=== PATIENT | female | born 1970 | race Caucasian/White ===

== ENCOUNTER → 2018-04-05 | Outpatient (CLI) | payer BC | LOC: MC.RAD 07:40 | DX: Z12.31 Encounter for screening mammogram for malignant neoplasm of breast (principal); Z98.82 Breast implant status ==

== ENCOUNTER 2019-07-26 13:42 | Emergency (ER) | payer OTHER ==
[~2019-07-26] VITALS: Ht 154.9 cm; Wt 51.4 kg
[2019-07-26 13:46] VITALS: BP 130/62
[2019-07-26] MEDS ORDERED: TAMIFLU 75MG75 MG PO (14:28)
[2019-07-26] MEDS ORDERED: TUSS PO (14:28)
[2019-07-26] MEDS ORDERED: ALBUTEROL0.83 MG/ML IH (14:28)
[2019-07-26 14:46] VITALS: PULSE 95; TEMP 99
== END 2019-07-26 14:46 | disposition home or self-care (01) ==
LOC: COL.ER 13:42
DX: J45.901 Unspecified asthma with (acute) exacerbation (principal); J11.1 Influenza due to unidentified influenza virus with other respiratory manifestations

== ENCOUNTER → 2019-10-18 | Outpatient (CLI) | payer BC ==
[~2019-10-18] MED LIST: ALBUTEROL0.83 MG/ML IH; TAMIFLU 75MG75 MG PO; TUSS PO
== END ==
LOC: MC.RAD 17:14
DX: Z12.31 Encounter for screening mammogram for malignant neoplasm of breast (principal); Z98.82 Breast implant status

== ENCOUNTER → 2021-08-11 | Outpatient (CLI) | payer OTHER | LOC: MC.RAD 09:00 | DX: Z12.31 Encounter for screening mammogram for malignant neoplasm of breast (principal); Z98.82 Breast implant status ==

== ENCOUNTER → 2024-02-10 | Outpatient (CLI) | payer OTHER | LOC: MC.RAD 07:21 | DX: Z12.31 Encounter for screening mammogram for malignant neoplasm of breast (principal) ==